=== PATIENT | male | born 1990 | race Caucasian/White ===

== ENCOUNTER 2024-10-23 07:19 | Outpatient (CLI) | payer OTHER | END 2024-10-23 07:22 | disposition home or self-care (01) | LOC: MRI 07:19 | DX: M25.512 Pain in left shoulder (principal); M54.2 Cervicalgia | CPT/HCPCS: 72141; 73221 ==

== ENCOUNTER 2024-11-23 10:25 | Outpatient (CLI) | payer OTHER | END 2024-11-23 10:32 | disposition home or self-care (01) | LOC: RAD 10:25 | PROVIDERS: ATTEND Physical Medicine & Rehabilitation | DX: M54.2 Cervicalgia (principal); M75.82 Other shoulder lesions, left shoulder; M77.12 Lateral epicondylitis, left elbow ==